=== PATIENT | female | born 1960 | race Asian ===

== ENCOUNTER 2020-10-04 15:54 | Inpatient (IN) | payer MEDICAID, SELFPAY ==
[~2020-10-04] VITALS: Ht 160 cm; Wt 92.7 kg
--- NOTE | 2020-10-04 15:54 | NUR ---
BROUGHT IN BY [facility] PLACED IN BED #7 AND TRIAGED. REPORT GIVEN TO COLBY
[2020-10-04 15:55] VITALS: BP_SYST 113
[2020-10-04] MEDS ORDERED: IPRATROPIUM BROM 0.5 MG/2.5 ML VIAL.NEB (ATROVENT) INH ONE ×2 (16:09→16:15)
[2020-10-04] MEDS ORDERED: LevALBUTEROL HCL 1.25 MG/0.5 ML *CONC.* VIAL.NEB (XOPENEX CONC.) INH ONE ×2 (16:09→16:15)
[2020-10-04] MEDS ORDERED: methylPREDNISolone SOD SUCC/PF 62.5 MG/ML VIAL ONE (16:14)
[2020-10-04] MEDS ORDERED: methylPREDNISolone SOD SUCC/PF 62.5 MG/ML VIAL IVP ONE (16:15)
[2020-10-04] MEDS ORDERED: NACL 0.9% 1,000 ML IV ONE (16:15)
--- NOTE | 2020-10-04 16:22 | NUR ---
PT BIB [facility] FOR SOB SINCE YESTERDAY EVENING. EMPLOYMENT PROGRAM REPRESENTATIVE STATED WHEN THEY ARRIVED SHE COULD ONLY SAY 3 WORD SENTENCES AND HAD A SPO2 OF 75%. UPON o2 ADMINISTRATION O2 SAT WAS STILL LOW AND THEY STARTED A BREATHING TREATMENT WHICH MADE HER FEEL BETTER AND HAVE AN SPO2 OF AROUND 90%. PT IS WEAK AND TIRED NOW AND IS NOT COMPLAINING OF ANY PAIN.
--- NOTE | 2020-10-04 16:26 | NUR ---
PT PUT ON BIPAP BY RT DUE TO AN ELEVEATED C02 LEVEL.
--- NOTE | 2020-10-04 16:33 | NUR ---
RADIOLOGY AT BEDSIDE
[2020-10-04 16:52] LABS: CALCIUM 8.5 mg/dL (8.4-11.0); CREATININE 0.85 mg/dL (0.55-1.30); POTASSIUM 3.3 mmol/L (3.5-5.1)
[2020-10-04 17:02] LABS: INR 1.2 (0.8-1.2); PROTHROMBIN TIME 12.4 SECS (9.5-12.5)
[2020-10-04 17:04] LABS: ALBUMIN 2.9 g/dL (3.4-4.8); TOTAL BILIRUBIN 1.3 mg/dL (0.0-1.0)
[2020-10-04 17:19] LABS: BASOPHILS # (AUTO) 0.1 K/uL (0.0-0.2); BASOPHILS % (AUTO) 0.8 % (0.0-2.0); EOSINOPHILS % (AUTO) 0.6 % (0.0-4.0); HEMATOCRIT 44.5 % (36-48); LYMPHOCYTES # (AUTO) 1.4 K/uL (1.0-5.5); LYMPHOCYTES % (AUTO) 16.6 % (20.5-51.5); MEAN CORPUSCULAR HEMOGLOBIN 20 pg (27-31); MEAN CORPUSCULAR VOLUME 74 fL (79.0-98.0); MONOCYTES # (AUTO) 0.8 K/uL (0.0-1.0); MONOCYTES % (AUTO) 9.2 % (1.7-9.3); NEUTROPHILS % (AUTO) 72.8 % (40.0-70.0); PLATELET COUNT (AUTO) 374 K/uL (130-430); RED BLOOD CELL COUNT(AUTO) 6.02 MIL/uL (4.2-6.2); RED CELL DISTRIBUTION WIDTH 23.4 % (9.0-15.0); WHITE BLOOD COUNT (AUTO) 8.3 K/uL (4.8-10.8)
[2020-10-04 17:49] LABS: HEMOGLOBIN 12.1 g/dL (12.0-16.0); MEAN CORPUSCULAR HGB CONC 27 % (32-36)
--- NOTE | 2020-10-04 17:49 | NUR ---
BERENICE SON. PT CONSENTED TO GIVING IMFORMATION TO HIM IF NEEDED.
[2020-10-04] MEDS ORDERED: TRAM50TA PO (17:57)
[2020-10-04] MEDS ORDERED: ALPR1TAB2 PO (17:57)
[2020-10-04] MEDS ORDERED: LEVO25TA7 PO (17:57)
[2020-10-04] MEDS ORDERED: ALBU2.5V7 INH (17:57)
--- NOTE | 2020-10-04 17:57 | NUR ---
PT IS FULL CODE
--- NOTE | 2020-10-04 17:58 | NUR ---
PTs MED REC COMPLETE
[2020-10-04] MEDS ORDERED: FUROSEMIDE 40 MG/4 ML VIAL IVP ONE ×2 (18:00→19:30)
--- NOTE | 2020-10-04 18:15 | NUR ---
# 15 FR Jo catheter with use of sterile technique. Immediate return of 20 cc DARK YELLOW urine noted. Bedside drainage bag placed below level of bladder. Urine sample collected and sent to lab. Pt tolerated procedure WELL.
[2020-10-04 18:38] LABS: BILIRUBIN,URINE 2+ (NEGATIVE); BLOOD, URINE NEGATIVE (NEGATIVE); GLUCOSE,URINE NEGATIVE (NEGATIVE); KETONES,URINE NEGATIVE (NEGATIVE); LEUKOCYTE ESTERASE ,URINE NEGATIVE (NEGATIVE); NITRITE, URINE POSITIVE (NEGATIVE); PROTEIN URINE 3+ (NEGATIVE)
[2020-10-04 18:40] LABS: COLOR,URINE AMBER (YELLOW)
[2020-10-04 18:41] LABS: CLARITY/URINE HAZY (CLEAR)
[2020-10-04 18:57] LABS: RBC,URINE 0-3 /HPF (0-3)
--- NOTE | 2020-10-04 18:57 | NUR ---
Patient will be admitted to care of DR. ARGUETA. Admitted to TELEMETRY unit. Will go to room 116A. Belongings list completed. Complete and up to date summary report printed. SBAR report to be given at bedside with opportunity for questions.
[2020-10-04 18:58] LABS: BACTERIA,URINE MANY /HPF (None Seen); WBC,URINE 0-3 /HPF (0-3)
[2020-10-04 18:59] LABS: COARSE GRANULAR CASTS,URINE 0-10 /LPF (None Seen); FINE GRANULAR CASTS,URINE 0-10 /LPF (None Seen); HYALINE CASTS, URINE 30-50 /LPF (None Seen); MUCUS,URINE 1+ /LPF (None Seen)
[2020-10-04] MEDS ORDERED: ALBUTEROL SULFATE 0.083% 2.5 MG/3 ML VIAL.NEB INH PRN (19:00)
[2020-10-04] MEDS ORDERED: ONDANSETRON HCL 4 MG/2 ML VIAL IVP PRN (19:00)
[2020-10-04] MEDS ORDERED: MAGNESIUM SULFATE 50 ML IV PRN (19:00)
[2020-10-04] MEDS ORDERED: MORPHINE 2 MG/ML INJ. SYRINGE IVP PRN ×2 (19:00)
[2020-10-04] MEDS ORDERED: LORazepam 2 MG/ML VIAL IVP PRN (19:00)
[2020-10-04] MEDS ORDERED: MUPIROCIN 2% TOPICAL OINTMENT 22 GM NS PRN (19:00)
[2020-10-04] MEDS ORDERED: ENOXAPARIN SODIUM 40 MG/0.4 ML SYRINGE SUBCUT ONE (19:30)
[2020-10-04] MEDS ORDERED: PIPERACILLIN/TAZOBACTAM 3.375 GM/VIAL (ZOSYN) IV ONE ×2 (19:51→22:48)
--- NOTE | 2020-10-04 20:10 | NUR ---
PT HAS BEEN UPGRADED TO ICU
[2020-10-04] MEDS: PIPERACILLIN/TAZO 3.375 GM in NS 50 ML IV SCH (20:20)
--- NOTE | 2020-10-04 20:28 | NUR ---
# 22 gauge angiocath placed to R FOREARM. Use of asceptic technique. Opsite placed over site. Blood return noted. Blood for lab drawn from site. Flushed with 10 cc of normal saline. No evidence of infiltration noted. Patient tolerated well.
--- NOTE | 2020-10-04 21:41 | NUR ---
Transfer to ICU via ACLS protocol. Licensed nurse present. IV present no signs or symptoms of infiltration.
[2020-10-04 21:50] VITALS: BP_SYST 109
--- NOTE | 2020-10-04 21:50 | NUR ---
paged Dr. Merrill paged and notified of patient's current respiratory status and ABG's. No new orders and dr stated he will see her in the morning.
--- NOTE | 2020-10-04 21:50 | NUR ---
ADMIT patient came from ER to ICU BED 3. Patient is on the bipap. Does not complain of any pain. Saturations are between 85-90's.
[2020-10-04 22:00] VITALS: BP_SYST 118
--- NOTE | 2020-10-04 22:25 | NUR ---
PAGED FOR ORDERS DIALED: [phone] SPOKE TO: AUTOMATED EXCHANGE
--- NOTE | 2020-10-04 22:28 | NUR ---
PAGED FOR CONSULT NITESH MERRITT ORDERING PHYSICIAN: DR. ARGUETA REASON FOR CONSULT: CHF EXAC DIALED: [phone] SPOKE TO: DEB
[2020-10-04 22:30] VITALS: BP_SYST 107
[2020-10-04 23:00] VITALS: BP_SYST 125
[2020-10-05] VITALS (22 sets, daily range): BP systolic 95–135
[2020-10-05] MEDS: PIPERACILLIN/TAZO 3.375 GM in NS 50 ML IV SCH ×4 (00:29→18:00)
[2020-10-05] MEDS: IPRATROPIUM/ALBUTEROL SULFATE 3 ML AMPUL.NEB (DUONEB) INH PRN (02:40)
--- NOTE | 2020-10-05 02:41 | NUR ---
INCREASED FIO2 TO 75% AT THIS TIME SAT ONLY 79 TO 86% ON 50% RN AWARE WILL TITRATE SAT INCREASES SAT 90% ON 75%FIO2
[2020-10-05] MEDS: LEVOTHYROXINE SODIUM 0.025 MG TABLET PO SCH (06:31)
--- NOTE | 2020-10-05 06:38 | NUR ---
Nutrition Update Kentrell Scale 15 noted. Pt admitted for CHF exacerbation Diet: Cardiac BMI: 42.5 kg/m2 RD to follow per nutrition care standards.
--- NOTE | 2020-10-05 06:48 | NUR ---
Opening Note Received report from AM nurse using SBAR approach.
--- NOTE | 2020-10-05 07:15 | NUR ---
Opening Note Received bedside report from endorsing RN for continuation of care. Received patient on BIPAP resting in bed, no signs or symptoms of acute distress noted. Bed locked in lowest position, bed alarm on, and call light within reach. Fall and safety precautions in place. All needs met.
--- NOTE | 2020-10-05 07:23 | NUR ---
Dr. Lyons at bedside examining patient, new orders received.
[2020-10-05 07:27] LABS: CALCIUM 8.3 mg/dL (8.4-11.0); CREATININE 0.9 mg/dL (0.55-1.30); POTASSIUM 3.4 mmol/L (3.5-5.1)
--- NOTE | 2020-10-05 08:38 | NUR ---
2D ECHO 2D ECHO being done at bedside by operator technician.
[2020-10-05] MEDS: ENOXAPARIN SODIUM 40 MG/0.4 ML SYRINGE SUBCUT SCH (08:40)
[2020-10-05] MEDS ORDERED: FUROSEMIDE 40 MG/4 ML VIAL IVP SCH (09:00)
[2020-10-05] MEDS ORDERED: methylPREDNISolone SOD SUCC/PF 62.5 MG/ML VIAL IVP ONE (09:15)
[2020-10-05 10:08] LABS: BASOPHILS % (AUTO) 0.4 % (0.0-2.0); HEMATOCRIT 43.6 % (36-48); HEMOGLOBIN 11.7 g/dL (12.0-16.0); LYMPHOCYTES # (AUTO) 0.5 K/uL (1.0-5.5); LYMPHOCYTES % (AUTO) 7.3 % (20.5-51.5); MEAN CORPUSCULAR HEMOGLOBIN 20 pg (27-31); MEAN CORPUSCULAR HGB CONC 27 % (32-36); MEAN CORPUSCULAR VOLUME 74 fL (79.0-98.0); MONOCYTES # (AUTO) 0.1 K/uL (0.0-1.0); MONOCYTES % (AUTO) 0.8 % (1.7-9.3); NEUTROPHILS # (AUTO) 6.5 K/uL (1.8-7.7); NEUTROPHILS % (AUTO) 91.5 % (40.0-70.0); PLATELET COUNT (AUTO) 332 K/uL (130-430); RED BLOOD CELL COUNT(AUTO) 5.88 MIL/uL (4.2-6.2); WHITE BLOOD COUNT (AUTO) 7.1 K/uL (4.8-10.8)
[2020-10-05 10:22] LABS: RED CELL DISTRIBUTION WIDTH 23.4 % (9.0-15.0)
--- NOTE | 2020-10-05 10:41 | NUR ---
Dietitian Recommendations *Recommend: [facility] Cardiac diet, Glucerna BID. (ONS will provide 440 kcal, 20gm protein daily). *Offer diet education on next RD visit. *Consider nutrition support if poor PO intake and poor tolerance on PO diet while on BiPAP persists for more than 7 days. Please see Nutritional Assessment for details. ALF, RD
--- NOTE | 2020-10-05 11:25 | NUR ---
RT NOTES Placed pt on HFNC 20L 98% for meal. No adverse reactions noted. Will monitor pt.
--- NOTE | 2020-10-05 15:44 | NUR ---
Dr. Merrill at bedside examining patient, new orders received.
[2020-10-05] MEDS: methylPREDNISolone SOD SUCC/PF 62.5 MG/ML VIAL IVP SCH (17:59)
--- NOTE | 2020-10-05 19:04 | NUR ---
Closing Note Endorsed bedside report to oncoming RN using SBAR approach for continuation of care.
--- NOTE | 2020-10-05 19:30 | NUR ---
Opening Note Received report from AM nurse using SBAR approach.
--- NOTE | 2020-10-05 21:00 | NUR ---
Gave patient a bed bath as requested.
[2020-10-05] MEDS: FUROSEMIDE 40 MG/4 ML VIAL IVP SCH (21:16)
[2020-10-06] VITALS (24 sets, daily range): BP systolic 89–145
--- NOTE | 2020-10-06 | NUR ---
patient took out her IV. Replaced IV on right forearm 22 iv gauge. No signs or symptoms of infiltration noted.
[2020-10-06] MEDS: PIPERACILLIN/TAZO 3.375 GM in NS 50 ML IV SCH ×4 (00:49→18:43)
--- NOTE | 2020-10-06 02:00 | NUR ---
IV PLACEMENT: # 20 gauge angiocath placed to RFA. Use of aseptic technique. Opsite placed over site. Blood return noted. Flushed with 10 cc of normal saline. No evidence of infiltration noted. Patient tolerated well.
[2020-10-06] MEDS: methylPREDNISolone SOD SUCC/PF 62.5 MG/ML VIAL IVP SCH ×3 (03:42→17:09)
--- NOTE | 2020-10-06 04:05 | NUR ---
IV PLACEMENT: # 18 gauge angiocath placed to RFA. Use of aseptic technique. Opsite placed over site. Blood return noted. Flushed with 10 cc of normal saline. No evidence of infiltration noted. Patient tolerated well.
[2020-10-06] MEDS: LEVOTHYROXINE SODIUM 0.025 MG TABLET PO SCH (06:34)
[2020-10-06 06:37] LABS: BASOPHILS % (AUTO) 0.1 % (0.0-2.0); HEMOGLOBIN 11.3 g/dL (12.0-16.0); LYMPHOCYTES # (AUTO) 0.4 K/uL (1.0-5.5); LYMPHOCYTES % (AUTO) 5.3 % (20.5-51.5); MEAN CORPUSCULAR HEMOGLOBIN 20 pg (27-31); MEAN CORPUSCULAR HGB CONC 28 % (32-36); MEAN CORPUSCULAR VOLUME 72 fL (79.0-98.0); MONOCYTES # (AUTO) 0.2 K/uL (0.0-1.0); MONOCYTES % (AUTO) 2.2 % (1.7-9.3); NEUTROPHILS # (AUTO) 7.7 K/uL (1.8-7.7); NEUTROPHILS % (AUTO) 92.4 % (40.0-70.0); PLATELET COUNT (AUTO) 331 K/uL (130-430); WHITE BLOOD COUNT (AUTO) 8.4 K/uL (4.8-10.8)
[2020-10-06 07:01] LABS: ALANINE AMINOTRANSFERASE 7 U/L (12-78); ALBUMIN 2.6 g/dL (3.4-4.8); ASPARTATE AMINOTRANSFERASE 9 U/L (10-37); CALCIUM 8.4 mg/dL (8.4-11.0); CREATININE 0.93 mg/dL (0.55-1.30); GLUCOSE 140 mg/dL (70-99); POTASSIUM 3.3 mmol/L (3.5-5.1); THYROID STIMULATING HORMONE 1.37 uIu/mL (0.36-3.74); TOTAL BILIRUBIN 0.7 mg/dL (0.0-1.0); UREA NITROGEN, BLOOD 27 mg/dL (8-21)
[2020-10-06 07:33] LABS: ANION GAP 4 (5-15); CHLORIDE 99 mmol/L (98-107); SODIUM SERUM 148 mmol/L (136-145)
[2020-10-06 07:48] LABS: GFR AFRICAN AMERICAN 79 mL/min (>90)
[2020-10-06 08:13] LABS: CHOLESTEROL 127 mg/dL (<200); HDL CHOLESTEROL 42 mg/dL (>55); LDL CHOLESTEROL 73 mg/dL (<100); TRIGLYCERIDES 98 mg/dL (30-150)
--- NOTE | 2020-10-06 08:15 | NUR ---
AM ASSESSMENT. PT ALERT, R.T AT BEDSIDE, O2 CHANGED TO OXYMIZER AT 10 L, TEMP TAKEN AND IN NORMAL RANGE. DISCUSSED IV INSERTION AND ANTIBIOTICS TREATMENT TO PT, SHE STATED THAT THE MEDICINE WAS HURTING HER ARM WHEN HER NURSE GAVE HER DOSE THIS MORNING, SO SHE ASKED HER TO STOP IT. WILL TRY TO REINSERT ANOTHER IV IN A DIFFERENT AREA.
[2020-10-06] MEDS: ENOXAPARIN SODIUM 40 MG/0.4 ML SYRINGE SUBCUT SCH (09:59)
[2020-10-06] MEDS: POTASSIUM CHLORIDE 20 MEQ TAB.PRT.SR PO PRN (09:59)
--- NOTE | 2020-10-06 10:00 | NUR ---
IV INSERTION. 20 GAUGE CATHETER INSERTED INTO LEFT HAND, WITH GOOD BLOOD RETURN NOTED, SECURED WITH TAPE.
[2020-10-06] MEDS: FUROSEMIDE 40 MG/4 ML VIAL IVP SCH ×2 (10:30→20:04)
--- NOTE | 2020-10-06 16:30 | NUR ---
REST. PT SLEEPING DURING ROUNDS.
--- NOTE | 2020-10-06 19:30 | NUR ---
OPENING NOTE Received SBA Report from off coming RN for continuity of care. Pt laying in bed and on 10 L oximizer, oxygen saturations above 90%. Jo catheter in place and draining to gravity. Bed locked and in lowest position, safety precautions in place.
--- NOTE | 2020-10-06 20:00 | NUR ---
Pt awake and confused. Pt yelling help. Redirected pt and provided comfort measures, pt not redirectable. Pt attempts to remove equipment. Pt alert to self, pt states she is at "Elaina's house not in the hospital". Will continue to reorient pt and administer PRN for agitation.
[2020-10-06] MEDS: DOCUSATE SODIUM 100 MG CAPSULE PO PRN (20:04)
[2020-10-06] MEDS: ZOLPIDEM TARTRATE 5 MG TABLET PO PRN (20:05)
[2020-10-06] MEDS: ACETAMINOPHEN 325 MG TABLET PO PRN (20:05)
[2020-10-07] VITALS (25 sets, daily range): BP systolic 118–156
[2020-10-07] MEDS: methylPREDNISolone SOD SUCC/PF 62.5 MG/ML VIAL IVP SCH ×3 (01:00→20:42)
[2020-10-07] MEDS: PIPERACILLIN/TAZO 3.375 GM in NS 50 ML IV SCH ×4 (01:20→19:08)
[2020-10-07] MEDS: ZOLPIDEM TARTRATE 5 MG TABLET PO PRN ×2 (02:45→20:42)
[2020-10-07] MEDS: ACETAMINOPHEN 325 MG TABLET PO PRN (02:45)
[2020-10-07] MEDS: DOCUSATE SODIUM 100 MG CAPSULE PO PRN ×3 (02:45→20:42)
--- NOTE | 2020-10-07 03:30 | NUR ---
Pt alert to self and place at times but pt more redirectable. Pt is cooperative now.
[2020-10-07 06:47] LABS: BASOPHILS % (AUTO) 0.1 % (0.0-2.0); HEMOGLOBIN 11.9 g/dL (12.0-16.0); LYMPHOCYTES # (AUTO) 0.3 K/uL (1.0-5.5); LYMPHOCYTES % (AUTO) 3.6 % (20.5-51.5); MEAN CORPUSCULAR HEMOGLOBIN 20 pg (27-31); MEAN CORPUSCULAR HGB CONC 28 % (32-36); MEAN CORPUSCULAR VOLUME 71 fL (79.0-98.0); MONOCYTES # (AUTO) 0.3 K/uL (0.0-1.0); MONOCYTES % (AUTO) 2.9 % (1.7-9.3); NEUTROPHILS # (AUTO) 8.9 K/uL (1.8-7.7); NEUTROPHILS % (AUTO) 93.4 % (40.0-70.0); PLATELET COUNT (AUTO) 360 K/uL (130-430); RED BLOOD CELL COUNT(AUTO) 5.95 MIL/uL (4.2-6.2); RED CELL DISTRIBUTION WIDTH 23.1 % (9.0-15.0); WHITE BLOOD COUNT (AUTO) 9.6 K/uL (4.8-10.8)
[2020-10-07 06:49] LABS: CALCIUM 8.9 mg/dL (8.4-11.0); CHLORIDE 94 mmol/L (98-107); CREATININE 0.95 mg/dL (0.55-1.30); GLUCOSE 134 mg/dL (70-99); POTASSIUM 3.3 mmol/L (3.5-5.1); SODIUM SERUM 144 mmol/L (136-145); UREA NITROGEN, BLOOD 29 mg/dL (8-21)
[2020-10-07] MEDS: LEVOTHYROXINE SODIUM 0.025 MG TABLET PO SCH (06:55)
--- NOTE | 2020-10-07 07:30 | NUR ---
CLOSING NOTE Endorsed SBAR report to oncoming RN for continuity of care.
[2020-10-07 08:34] LABS: GFR AFRICAN AMERICAN 77 mL/min (>90)
[2020-10-07 08:35] LABS: ANION GAP < 3 (5-15)
[2020-10-07] MEDS ORDERED: FUROSEMIDE 40 MG/4 ML VIAL IVP SCH (09:00)
[2020-10-07] MEDS: POTASSIUM CHLORIDE 20 MEQ TAB.PRT.SR PO PRN (09:22)
[2020-10-07] MEDS: ENOXAPARIN SODIUM 40 MG/0.4 ML SYRINGE SUBCUT SCH (09:27)
--- NOTE | 2020-10-07 14:13 | NUR ---
0730: Received patient this AM awake, alert, and oriented x4. Denies Pain. Afebrile with other VS within normal limits. Presently on oxymizer @ 5l. Stated that she did not sleep well last night. Requested another sleeping pill. Stated that the sleeping pill she was given did not work for her because she did not sleep. Stated again that she was not in pain. Informed patient that we don't give sleeping pills during the day time. 0800: Ate 100% of her breakfast and tolerated it well. 0835: At the bedside in ICU 8 and was given Chemistry result of Patient's CO2 of 63 from the Charge . 0900: Potassium 3.3. Administered Potassium 40meq as a standing order replacement. 0839:Dr. Merrill the Pigment Presser was informed. Administered Diamox 500mg IVP as ordered. 0945: Beater Boss was informed of Venous CO2 of 63. Dr. Rondon was informed of Venous CO2 result of 63. 1117: Back from break was asked of Patient's neuro status. Patient was noted to be slightly lethargic. Not easy to arouse. 1120: Patient was immediately placed on Bipap 15/5, BUR 25, Fio2 75%. 1135: Fio2 titrated down to 65% by the RT.
--- NOTE | 2020-10-07 16:31 | NUR ---
Nutrition F/U RD reviewed pt's current EMR record including diet Hx, physician notes, nursing notes, pertinent labs/meds/procedures, care trends, and care activity. Admission Dx: CHF exacerbation Pt w/: Acute on chronic systolic over diastolic heart failure, CAP, Acute Hypercapnic respiratory failure, Moderate to severe malnutrition, obesity,Tobacco dependence, UTI per MD notes. PMH: COPD, CHF per MD notes SARS-CoV-2 Ag Rapid 10/04 Negative Current Diet Order/Nutrition Support: Cardiac, CCHO standard carb-60 gm diet w/ Glucerna BID x2 days Subjective Info: RD rounded to pt's room, however pt was busy w/ RT. RN reported that pt ate 100% of breakfast, but pt became lethargic and required BiPAP before lunch, and did not eat lunch for this reason. Per EMR review, pt is on 5 L O2 via BiPAP; PO intake average of 75% X4 meals; abd is soft and non-distended w/ active bowel sounds; no BM noted yet. Current diet is appropriate for now. Pertinent Medications: solu-medrol, lasix, lovenox, synthroid, piperacillin/tazobactam IV, k-dur, colace Pertinent Labs: K 3.3 L, BG 134 H, BUN 29 HL, CRE 0.95 WNL Ht: 5'3"/63" Wt: 240#/109 kg (10/05) -- *wt appears stable Body Mass Index: 42.51 kg/m2 (obesity class III) %IBW: 209 [place]/Adjusted Body Weight: 115#/52kg; Adj IBW obesity: 146#/66kg Skin Integrity Comment: Kentrell scale: 15. No skin issues/edema documented. Estimated Energy Expenditure (kcals/day) 2435-3848 Kcal/day (25-30 kcal/kg IBW for Morbid obesity) Estimated Protein Required (g/day) 52-78 gm/day (1-1.5 gm/kg IBW for Morbid obesity) Estimated Fluid Required (l/day) per MD (CHF) Problem/Etiology/Signs/Symptoms Malnutrition r/t morbid obesity AEB BMI >40kg/m2. *ongoing Altered nutrition related labs r/t medication interaction AEB elevated BG, steroid therapy. *ongoing Expected Outcomes/Goals Monitor appetite and PO intake w/ goal of pt meeting more than 75% of estimated nutritional needs, labs trending WNL, normal GI function, skin integrity/wt maintenance. Dietitian Recommendations * Continue cardiac, CCHO diet w/ Glucerna BID. (ONS will provide 440 kcal/day, 20 gm protein/day) Follow Up High Risk: F/U in 2-3 days
--- NOTE | 2020-10-07 16:42 | NUR ---
Dietitian Recommendations * Continue cardiac, CCHO diet w/ Glucerna BID. (ONS will provide 440 kcal/day, 20 gm protein/day) LP, RD Please refer to Nutrition F/U for details.
--- NOTE | 2020-10-07 19:30 | NUR ---
OPENING NOTE: Received SBAR report from off coming RN for continuity of care. Pt laying in bed, awake and alert on Bipap. Oxygen saturations maintained above 90%. No s/s of distress noted. Jo catheter in place and draining to gravity. Call light within reach. Bed locked and in lowest position. Safety precautions in place.
--- NOTE | 2020-10-07 19:54 | NUR ---
1600: Remains on Bipap. Note dto be awake, alert, and oriented x4. No respiratory distress or any other discomfort noted. Denies pain. Speech clear and coherent. paper novelty maker and RT aware. 1900: Status remains as stated above the rest of the shift. All stated protocols remain effective.
--- NOTE | 2020-10-07 20:15 | NUR ---
Pt laying in bed, stating she's hungry. Placed pt on oximizer so she could eat her dinner. Pt eating her dinner, tolerating well. Pt denies any nausea at the moment or any discomfort. Pt states she has not had a BM in a week. Will administer PRN Colace for her. Pt stated she would like her sleeping aid, will administer once she is ready for bed. Pt is a/o x 3 and makes needs known. Oj catheter in place and draining to gravity, yellow urine output noted. Assisted pt with repositioning. Call light within reach.Bed locked and in lowest position, safety precautions in place.
[2020-10-08] VITALS (21 sets, daily range): BP systolic 113–148
[2020-10-08] MEDS: PIPERACILLIN/TAZO 3.375 GM in NS 50 ML IV SCH ×4 (01:36→18:26)
--- NOTE | 2020-10-08 06:00 | NUR ---
Pt tolerated Bipap throughout the night and slept well. Pt switched to 6 L oximizer and tolerating well. Pt denies any pain or discomfort. Provided juice and crackers for snacking. Call light within reach, bed locked and in lowest position.
[2020-10-08] MEDS: LEVOTHYROXINE SODIUM 0.025 MG TABLET PO SCH (06:18)
[2020-10-08 06:29] LABS: MEAN CORPUSCULAR HEMOGLOBIN 20 pg (27-31); MEAN CORPUSCULAR HGB CONC 28 % (32-36)
[2020-10-08 07:01] LABS: CALCIUM 8.9 mg/dL (8.4-11.0); CREATININE 0.91 mg/dL (0.55-1.30); POTASSIUM 3.2 mmol/L (3.5-5.1)
--- NOTE | 2020-10-08 07:29 | NUR ---
CLOSING NOTE Endorsed SBAR report to off coming RN for continuity of care.
[2020-10-08] MEDS ORDERED: methylPREDNISolone SOD SUCC 40 MG/ML VIAL IVP ONE (08:45)
[2020-10-08 08:46] LABS: RED BLOOD CELL COUNT(AUTO) 6.13 MIL/uL (4.2-6.2); WHITE BLOOD COUNT (AUTO) 9.9 K/uL (4.8-10.8)
[2020-10-08 08:47] LABS: HEMATOCRIT 44.7 % (36-48); HEMOGLOBIN 12.3 g/dL (12.0-16.0); LYMPHOCYTES # (AUTO) 0.4 K/uL (1.0-5.5); LYMPHOCYTES % (AUTO) 4.1 % (20.5-51.5); MEAN CORPUSCULAR VOLUME 73 fL (79.0-98.0); MONOCYTES # (AUTO) 0.2 K/uL (0.0-1.0); MONOCYTES % (AUTO) 2.3 % (1.7-9.3); NEUTROPHILS # (AUTO) 9.3 K/uL (1.8-7.7); NEUTROPHILS % (AUTO) 93.6 % (40.0-70.0); PLATELET COUNT (AUTO) 369 K/uL (130-430); RED CELL DISTRIBUTION WIDTH 23.2 % (9.0-15.0)
[2020-10-08] MEDS ORDERED: SENNA 8.8 MG/5 ML UDC GT PRN ×2 (09:00→10:45)
[2020-10-08] MEDS ORDERED: methylPREDNISolone SOD SUCC 40 MG/ML VIAL IVP SCH (09:00)
[2020-10-08] MEDS: ENOXAPARIN SODIUM 40 MG/0.4 ML SYRINGE SUBCUT SCH (09:09)
[2020-10-08] MEDS: MILK OF MAGNESIA 30 ML UDC PO PRN (09:13)
[2020-10-08] MEDS ORDERED: SENNA 8.8 MG/5 ML UDC GT SCH (11:00)
[2020-10-08] MEDS: SENNA 8.8 MG/5 ML UDC GT SCH ×2 (12:00→22:10)
[2020-10-08] MEDS ORDERED: SENNA 8.8 MG/5 ML UDC GT ONE (13:30)
[2020-10-08] MEDS ORDERED: OMEPRAZOLE Non-Formulary 20 MG CAPSULE.DR PO ONE (18:45)
[2020-10-08] MEDS ORDERED: PANTOPRAZOLE SODIUM 40 MG TAB PO ONE (18:45)
[2020-10-08] MEDS: POTASSIUM CHLORIDE 20 MEQ TAB.PRT.SR PO PRN (19:27)
--- NOTE | 2020-10-08 20:00 | NUR ---
PATIENT WAS ACCEPTED AND ASSEST DONE , PATIENT C/O OF NOT HAVING AN BM FOR 5 DAY HAS BEEN GIVEN MOM ,NO RESPOND PATIENT IS ANXIOUS AND IS AN SMOKER DONT NOT KNOWN SMOKE LAST , MAY GOING TO AN WITH DRAW MAY ALSO NEED MEDICATION , SON HAD CALLED NEED TO SPEAK TO THE PATIENT ON PHONE WAS NOT AWARE THE PHONE ELIECER INSIDE THE ROOM WAS NOT WORKING CAME AN MISUNDERSTAND , WILL TRIED TO FINE THE PORTABLE PHONE WITH PICTURE ONLY WAS FOUND AND PATIENT WAS ABLE TO SPEAK WITH HER SON STABLE
[2020-10-08] MEDS: methylPREDNISolone SOD SUCC 40 MG/ML VIAL IVP SCH (22:10)
--- NOTE | 2020-10-08 23:30 | NUR ---
PATIENT WAS GIVEN AMBIEN 10 MG PO FOE SLEEP AND GIVEN MOM 30 ML AND COLACE 100MG PO TO HELP WITH BM, STABLE, WILL CONTIUED WITH PLAN OF CARE
[2020-10-08] MEDS: ZOLPIDEM TARTRATE 5 MG TABLET PO PRN (23:48)
[2020-10-09] VITALS (23 sets, daily range): BP systolic 104–159
[2020-10-09] MEDS: INSULIN LISPRO SLIDING SCALE 100 UNITS/ML VIAL (humaLOG) SUBCUT PRN ×5 (00:08→21:25)
[2020-10-09] MEDS: PIPERACILLIN/TAZO 3.375 GM in NS 50 ML IV SCH ×4 (00:20→18:21)
[2020-10-09] MEDS: DOCUSATE SODIUM 100 MG CAPSULE PO PRN (01:11)
[2020-10-09] MEDS: MILK OF MAGNESIA 30 ML UDC PO PRN (01:11)
--- NOTE | 2020-10-09 05:30 | NUR ---
PATIENT WAS GIVEN AN BATH ASK FELT ANYTHING, STAT SHE WAS ABLE PASS SOME FLATUS , WILL CONTINUED MONITOR THE PATIENT STABLE
[2020-10-09 06:42] LABS: BASOPHILS % (AUTO) 0.1 % (0.0-2.0); HEMATOCRIT 47.5 % (36-48); HEMOGLOBIN 13.6 g/dL (12.0-16.0); LYMPHOCYTES # (AUTO) 0.4 K/uL (1.0-5.5); LYMPHOCYTES % (AUTO) 4.3 % (20.5-51.5); MEAN CORPUSCULAR HEMOGLOBIN 20 pg (27-31); MEAN CORPUSCULAR HGB CONC 29 % (32-36); MEAN CORPUSCULAR VOLUME 71 fL (79.0-98.0); MONOCYTES # (AUTO) 0.2 K/uL (0.0-1.0); MONOCYTES % (AUTO) 1.8 % (1.7-9.3); NEUTROPHILS % (AUTO) 93.8 % (40.0-70.0); PLATELET COUNT (AUTO) 322 K/uL (130-430); RED BLOOD CELL COUNT(AUTO) 6.69 MIL/uL (4.2-6.2); RED CELL DISTRIBUTION WIDTH 23.1 % (9.0-15.0); WHITE BLOOD COUNT (AUTO) 8.5 K/uL (4.8-10.8)
[2020-10-09 06:56] LABS: CALCIUM 8.8 mg/dL (8.4-11.0); CREATININE 0.84 mg/dL (0.55-1.30)
[2020-10-09] MEDS: LEVOTHYROXINE SODIUM 0.025 MG TABLET PO SCH (08:19)
[2020-10-09] MEDS ORDERED: OMEPRAZOLE Non-Formulary 20 MG CAPSULE.DR PO SCH (09:00)
[2020-10-09] MEDS: PANTOPRAZOLE SODIUM 40 MG TAB PO SCH (09:15)
[2020-10-09] MEDS: methylPREDNISolone SOD SUCC 40 MG/ML VIAL IVP SCH ×2 (09:15→21:22)
[2020-10-09] MEDS: ENOXAPARIN SODIUM 40 MG/0.4 ML SYRINGE SUBCUT SCH (09:16)
[2020-10-09] MEDS: SENNA 8.8 MG/5 ML UDC GT SCH ×2 (09:17→21:00)
[2020-10-09] MEDS: ACETAMINOPHEN 325 MG TABLET PO PRN ×2 (11:13→19:53)
--- NOTE | 2020-10-09 19:27 | NUR ---
PT HAS BEEN STABLE THE WHOLE SHIFT, GIVEN TYLENOL FOR HEAD ACHE, PT HAD 1 BM. BLOOD SUGAR CHECKED AND GIVEN COVERAGE. ENDORSED TO NIGHT KATELYN BECKETT.
--- NOTE | 2020-10-09 20:00 | NUR ---
Patient awake alert HOB elevated verbally indicative OXIMIZER @ 6 LPM 02 SAT 96 % chest movement is symmetrical also unlabored call schwartz given to patient .
[2020-10-09] MEDS: ZOLPIDEM TARTRATE 5 MG TABLET PO PRN (21:23)
--- NOTE | 2020-10-09 23:09 | NUR ---
TYLENOL 325 MG PO administer for acute pain & helpful .
--- NOTE | 2020-10-09 23:10 | NUR ---
AMBIEN 10 MG PO administer for sleep aide per patient Request / monitor .
[2020-10-10] VITALS (16 sets, daily range): BP systolic 110–136
[2020-10-10] MEDS: PIPERACILLIN/TAZO 3.375 GM in NS 50 ML IV SCH ×4 (00:01→17:47)
--- NOTE | 2020-10-10 02:59 | NUR ---
Large stool noted assist / for position change kept clean & dry as needed SAFETY MEASURES implemented / .
--- NOTE | 2020-10-10 03:11 | NUR ---
Patient awake alert verbally indicative 02 SAT 97 % on OXIMIZER @ 6 LPM skin dry also warm .
--- NOTE | 2020-10-10 05:27 | NUR ---
Patient awake this hour verbally indicative HOB is elevated Respirations remain Regular also unlabored .
[2020-10-10] MEDS: LEVOTHYROXINE SODIUM 0.025 MG TABLET PO SCH (06:16)
[2020-10-10 06:18] LABS: CALCIUM 8.8 mg/dL (8.4-11.0); CREATININE 0.92 mg/dL (0.55-1.30); POTASSIUM 4.5 mmol/L (3.5-5.1)
[2020-10-10] MEDS: INSULIN LISPRO SLIDING SCALE 100 UNITS/ML VIAL (humaLOG) SUBCUT PRN ×3 (06:18→17:56)
[2020-10-10 06:31] LABS: HEMATOCRIT 47.7 % (36-48); HEMOGLOBIN 13.6 g/dL (12.0-16.0); LYMPHOCYTES # (AUTO) 0.3 K/uL (1.0-5.5); LYMPHOCYTES % (AUTO) 3.5 % (20.5-51.5); MEAN CORPUSCULAR HEMOGLOBIN 20 pg (27-31); MEAN CORPUSCULAR HGB CONC 29 % (32-36); MEAN CORPUSCULAR VOLUME 71 fL (79.0-98.0); MONOCYTES # (AUTO) 0.1 K/uL (0.0-1.0); MONOCYTES % (AUTO) 1.5 % (1.7-9.3); NEUTROPHILS # (AUTO) 7.7 K/uL (1.8-7.7); PLATELET COUNT (AUTO) 340 K/uL (130-430); WHITE BLOOD COUNT (AUTO) 8.1 K/uL (4.8-10.8)
--- NOTE | 2020-10-10 07:15 | NUR ---
Opening/MD Rounds Received report from endorsing RN. Pt AAOx4, states no pain or distress at this time, on 6L O2 via oximizer. Jo in place draining yellow urine. Dr. Edouard already rounded this morning. Bed in locked and call light in reach. No other complaints at this time.
[2020-10-10 08:08] LABS: TOTAL IRON BIND. CAPACITY 389 ug/dL (250-450)
[2020-10-10] MEDS: ENOXAPARIN SODIUM 40 MG/0.4 ML SYRINGE SUBCUT SCH (08:24)
[2020-10-10] MEDS: SENNA 8.8 MG/5 ML UDC GT SCH ×3 (08:27→21:45)
[2020-10-10] MEDS: methylPREDNISolone SOD SUCC 40 MG/ML VIAL IVP SCH ×2 (08:27→21:46)
[2020-10-10] MEDS: PANTOPRAZOLE SODIUM 40 MG TAB PO SCH (08:27)
[2020-10-10] MEDS: FUROSEMIDE 40 MG/4 ML VIAL IVP SCH (08:28)
[2020-10-10] MEDS: DOCUSATE SODIUM 100 MG CAPSULE PO PRN (08:49)
--- NOTE | 2020-10-10 08:55 | NUR ---
Pt states no pain or distress at this time. O2 changed to 3LPM via oximizer. Call out to patient's son per pt request, no answer, left voicemail.
--- NOTE | 2020-10-10 10:00 | NUR ---
Received call from pt's son Glynn, update given. States he has no transportation to see pt but is able to have video call. Pt currently sleeping, arousable.
--- NOTE | 2020-10-10 11:29 | NUR ---
Nutrition F/U RD reviewed pt's current EMR record including diet Hx, physician notes, nursing notes, pertinent labs/meds/procedures, care trends, and care activity. Admission Dx: CHF exacerbation Pt w/: Acute on chronic systolic over diastolic heart failure, CAP, Acute Hypercapnic respiratory failure, Moderate to severe malnutrition, obesity,Tobacco dependence, UTI per MD notes. PMH: COPD, CHF per MD notes SARS-CoV-2 Ag Rapid 10/04 Negative, PCR 10/08 Negative Current Diet Order/Nutrition Support: Cardiac, CCHO standard carb-60 gm diet w/ Glucerna BID x5 days Subjective Info: RD visit at bedside today. Pt in good spirits and able to hold conversation. 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 Pt denied any N/V/D/C. RD offered diet education during visit, pt was passive and accepting of the handouts but did not want RD to review diet order w/ her. Pt also states that she wants to rest/sleep. Per MD notes, pt w/ COPD and CHF w/ extensive smoking history and on 2L oxygen at home. O2 requirements has gradually decreased from that on admission, now on 6L oxymizer. CXR on 10/08 showed increased left base infiltrate and effusion. Pt remains in ICU. Per EMR, abdomen is soft and nondistended w/ active bowel sounds, last BM 10/10 x2. Kentrell scale: 16. No skin issues/edema documented. PO intake records incomplete. Current diet remains adequate and appropriate. Pertinent Medications: solu-medrol, lasix, lovenox, synthroid, piperacillin/tazobactam IV, k-dur, colace Pertinent Labs: 10/10 Na 141WNL, K 4.5WNL, BG 166H, POC BG 180H, BUN 31H, Cre 0.92WNL, 10/04 HgbA1c 5.9H Ht: 5'3"/63" Wt: 240#/109 kg (10/05). New weight: 204#/92.6 kg (10/10) -36# weight loss, possibly d/t fluid loss and poor PO intake during first few days of admission. Body Mass Index: 42.51 kg/m2 (obesity class III). New BMI: 36.2 kg/m2 (10/10) %IBW: 209 [place]/Adjusted Body Weight: 115#/52kg; New Adj MIAH: 137#/ 62.3kg. (Modified) Estimated Energy Expenditure (kcals/day) 4783-2762 Kcal/day (25-30 kcal/kg IBW for Obesity) (Modified) Estimated Protein Required (g/day) 52-78 gm/day (1-1.5 gm/kg IBW for Obesity) Estimated Fluid Required (l/day) per MD (CHF) Problem/Etiology/Signs/Symptoms Malnutrition r/t morbid obesity AEB BMI >40kg/m2. *no longer applicable, BMI lower than 40kg/m2 as of 10/10. Altered nutrition related labs r/t medication interaction AEB elevated BG, steroid therapy. *ongoing Poor nutrition quality of life r/t behavioral factors AEB pt follows unrestricted diet at home, and eats whatever she likes. (*new) Expected Outcomes/Goals Monitor appetite and PO intake w/ goal of pt meeting more than 75% of estimated nutritional needs, labs trending WNL, normal GI function, skin integrity/wt maintenance. Dietitian Recommendations * Continue cardiac, CCHO diet w/ Glucerna BID. (ONS will provide 440 kcal/day, 20 gm protein/day) * Diet education --needs reinforcement by f/u. Follow Up High Risk: F/U in 2-3 days
--- NOTE | 2020-10-10 11:41 | NUR ---
Dietitian Recommendations * Continue cardiac, CCHO diet w/ Glucerna BID. (ONS will provide 440 kcal/day, 20 gm protein/day) * Diet education --needs reinforcement by f/u. Please see Nutrition F/U note for details. JUSTINA, RD
--- NOTE | 2020-10-10 12:30 | NUR ---
Telemetry Status Pt now being monitored as telemetry status. Waiting for available bed.
--- NOTE | 2020-10-10 16:00 | NUR ---
Physical therapist with patient.
[2020-10-10] MEDS: IPRATROPIUM/ALBUTEROL SULFATE 3 ML AMPUL.NEB (DUONEB) INH PRN (16:08)
--- NOTE | 2020-10-10 17:00 | NUR ---
Pt states no pain or distress at this time on 2L O2 via oximizer. Pt also on video call with son Glynn. Pt and son updated with plan of care. Still waiting for bed.
--- NOTE | 2020-10-10 19:02 | NUR ---
Closing Pt states no pain or distress, on 2L O2 via oximizer. IV site intact, patent. Jo in place draining urine to gravity. No other complaints at this time. Informed pt about waiting for bed, states understanding. Will endorse plan of care to oncoming RN.
--- NOTE | 2020-10-10 19:36 | NUR ---
Report given to endorsing RN. Pt will transfer to 118A telemetry.
--- NOTE | 2020-10-10 19:45 | NUR ---
TRANSFER PT TRANSFERRED VIA BED TO TELE 118A. NURSE RHODA STEPHENS.
--- NOTE | 2020-10-10 19:55 | NUR ---
CHANGE OF SHIFT; pt. transferred from ICU, report given by Tereza. pt. awake alert. oriented to room, use of call light and bed control. IV tko on left hand. placed on cardiac cath technologist and shows sinus rhythm. engel cath to osd. O2 @ 2 liters per oximizer, HOB elevated. informed pt. to use call light for help and verbalized understanding. call light within reach.
--- NOTE | 2020-10-10 21:45 | NUR ---
NOTES: pt. medicated as scheduled. pt. repositioned with help, turn to sides. BS checked 146, no coverage. Addendum: 10/11/20 at 0349 by Ann Benson RN Late entry 2030 10/10/20 RT asked pt. to be place on BIPAP but refused.
[2020-10-10] MEDS: ACETAMINOPHEN 325 MG TABLET PO PRN (21:47)
[2020-10-10] MEDS: ZOLPIDEM TARTRATE 5 MG TABLET PO PRN (21:47)
[2020-10-11] VITALS (7 sets, daily range): BP systolic 121–142
[2020-10-11] MEDS: PIPERACILLIN/TAZO 3.375 GM in NS 50 ML IV SCH ×3 (00:07→13:14)
--- NOTE | 2020-10-11 00:17 | NUR ---
NOTES: pt. pretty awake, needs attended. IV antibiotic infused.
--- NOTE | 2020-10-11 02:05 | NUR ---
NOTES: pt. checked and sleeping.
--- NOTE | 2020-10-11 04:30 | NUR ---
NOTES: pt. remain asleep. condition observed. no distress.
[2020-10-11 06:12] LABS: BASOPHILS % (AUTO) 0.1 % (0.0-2.0); HEMATOCRIT 46.4 % (36-48); HEMOGLOBIN 13.2 g/dL (12.0-16.0); LYMPHOCYTES # (AUTO) 0.4 K/uL (1.0-5.5); LYMPHOCYTES % (AUTO) 3.6 % (20.5-51.5); MEAN CORPUSCULAR HEMOGLOBIN 20 pg (27-31); MEAN CORPUSCULAR HGB CONC 29 % (32-36); MEAN CORPUSCULAR VOLUME 71 fL (79.0-98.0); MONOCYTES # (AUTO) 0.2 K/uL (0.0-1.0); MONOCYTES % (AUTO) 2.2 % (1.7-9.3); NEUTROPHILS # (AUTO) 9.3 K/uL (1.8-7.7); NEUTROPHILS % (AUTO) 94.1 % (40.0-70.0); PLATELET COUNT (AUTO) 331 K/uL (130-430); RED BLOOD CELL COUNT(AUTO) 6.49 MIL/uL (4.2-6.2); RED CELL DISTRIBUTION WIDTH 22.4 % (9.0-15.0); WHITE BLOOD COUNT (AUTO) 9.9 K/uL (4.8-10.8)
[2020-10-11] MEDS: LEVOTHYROXINE SODIUM 0.025 MG TABLET PO SCH (06:13)
[2020-10-11 06:23] LABS: CALCIUM 8.9 mg/dL (8.4-11.0); CREATININE 0.91 mg/dL (0.55-1.30); POTASSIUM 4.3 mmol/L (3.5-5.1)
[2020-10-11] MEDS: INSULIN LISPRO SLIDING SCALE 100 UNITS/ML VIAL (humaLOG) SUBCUT PRN ×4 (06:27→21:54)
--- NOTE | 2020-10-11 06:47 | NUR ---
CLOSING NOTES; pt. awakened , BS checked 204. IV antibiotic infused. for further care and assistance. IV site patent, engel cath intact. call light within reach. will endorse to incoming shift.
--- NOTE | 2020-10-11 07:30 | NUR ---
OPENING NOTES: RECEIVED REPORT FROM CORSAGE MAKER NURSE. PATIENT IS AWAKE LAYING DOWN IN BED. TOLERATED OXYGEN ON 2L OXIMIZER WITH NO DISTRESS NOTED. IV LINE PATENT AND INTACT WITH NO INFILTRATION NOTED. DIA CATHETER IN PLACE AND INTACT DRAINING BY GRAVITY. PATIENT STABLE AT THIS TIME. SAFETY, FALL, AND ASPIRATION PRECAUTIONS ARE IN PLACE. BED LOCKED IN LOWEST POSITION AND CALL LIGHT IN REACH. WILL CONTINUE TO MONITOR PATIENT FOR ANY CHANGES.
[2020-10-11] MEDS ORDERED: AMOX-423 PO (08:41)
[2020-10-11] MEDS ORDERED: IRON DEXTRAN COMPLEX 25 MG in NS 50 ML TEST DOSE IV ONE (09:00)
--- NOTE | 2020-10-11 09:00 | NUR ---
PATIENT WAS PUT ON A 2L NASAL CANNULA ACCORDING TO RT. PATIENT TOLERATED IT WELL.
[2020-10-11] MEDS: ENOXAPARIN SODIUM 40 MG/0.4 ML SYRINGE SUBCUT SCH (10:07)
[2020-10-11] MEDS: FUROSEMIDE 40 MG/4 ML VIAL IVP SCH (10:09)
[2020-10-11] MEDS: PANTOPRAZOLE SODIUM 40 MG TAB PO SCH (10:09)
[2020-10-11] MEDS: ASCORBIC ACID 500 MG TABLET PO SCH (10:09)
[2020-10-11] MEDS: SENNA 8.8 MG/5 ML UDC GT SCH ×2 (10:09→21:00)
[2020-10-11] MEDS: methylPREDNISolone SOD SUCC 40 MG/ML VIAL IVP SCH ×2 (10:09→21:41)
[2020-10-11] MEDS ORDERED: IRON DEXTRAN COMPLEX 75 MG in NS 100 ML IV SCH (11:00)
[2020-10-11] MEDS ORDERED: IRON DEXTRAN COMPLEX 75 MG in NS 100 ML IV ONE (11:00)
[2020-10-11] MEDS: ACETAMINOPHEN 325 MG TABLET PO PRN (11:50)
--- NOTE | 2020-10-11 11:59 | NUR ---
Dr Javan Edouard, will see pt
--- NOTE | 2020-10-11 15:01 | NUR ---
CM note: discussed dc plan to home with home health when cleared by senior php web developer. The pt agreed with the dc but does not want home health nurse visiting. Confirmed she has home O2 equipment ready at home.
--- NOTE | 2020-10-11 16:07 | NUR ---
TRIED TO BOOK A FOLLOW UP APPOINTMENT WITH HER PRIMARY MD DR DEL RIO ([facility]) BUT WHEN WE CALLED A FEW MINUTES BEFORE 1600, NO ONE ANSWERED THE PHONE . WE WILL WORK ON THE APPOINTMENT TOMORROW AM AND NOTIFY THE PT AT HOME.
--- NOTE | 2020-10-11 16:08 | NUR ---
CHF FOLLOW-UP: PATIENT REFUSED FOR STAFF TO MAKE AN APPOINTMENT FOR HER TO HER DOCTOR DUE TO LACK OF TRANSPORTATION. INSTRUCTED PATIENT TO CALL AND SEE PRIMARY CARE DOCTOR 7 DAYS AFTER DISCHARGE. PATIENT VERBALIZED UNDERSTANDING.
--- NOTE | 2020-10-11 18:16 | NUR ---
Vanessa Cox was paged directly. re: clearance for discharge to home.
--- NOTE | 2020-10-11 18:30 | NUR ---
SPOKE TO DR. MTZ GAVE CLEARANCE TO DISCHARGE THE PATIENT HOME.
--- NOTE | 2020-10-11 18:34 | NUR ---
CLOSING NOTES: PATIENT IS AWAKE LAYING DOWN IN BED. TOLERATED OXYGEN ON 2L OXIMIZER WITH NO DISTRESS NOTED. IV LINE PATENT AND INTACT WITH NO INFILTRATION NOTED. DIA CATHETER IN PLACE AND INTACT DRAINING BY GRAVITY. PATIENT STABLE AT THIS TIME. SAFETY, FALL, AND ASPIRATION PRECAUTIONS REMAINED IN PLACE. BED LOCKED IN LOWEST POSITION AND CALL LIGHT IN REACH. WILL ENDORSE PATIENT CARE TO ONCOMING AIRLINE CUSTOMER SERVICE AGENT NURSE.
--- NOTE | 2020-10-11 19:25 | NUR ---
CHANGE OF SHIFT; 'endorsed by day shift, pt. with discharge order, discharge instructions and paper given by nurse Mahajan. pt. waiting for her son to pick her up. pt. took off desk monitor and O2. denies any discomfort.
--- NOTE | 2020-10-11 20:00 | NUR ---
NOTES: pt. son here, verbalizing his mom is not her normal condition, noted focusing but able to answer questions appropriately, pt. felt anxious and said she is happy to go home, apparently pt. use O@ at home but son did not have the portable O@ saying its out of O2. checked O2 sat 88% on room air. will call Dr. Rondon.
--- NOTE | 2020-10-11 20:05 | NUR ---
NOTES: called Dr. Rondon and informed him about pt. status ( low O2 sat) and pt. son verbalizing not comfortable taking her hoe, hold discharge and ordered stat Ct scan of head without contrast'
--- NOTE | 2020-10-11 20:11 | NUR ---
NOTES: 'called back Dr. Rondon and told him about the seizures and calling Rapid Response. more orders given.
--- NOTE | 2020-10-11 20:30 | NUR ---
NOTES: Rapid response ended @ 2021. EKG/AbG stat done neuro consult with Dr. Phillips and EEG KAUSHIK. pt. waking up and able to response verbally. padded rails on. Vs rechecked. O2 titrated down to 3 liters per oximizer, O2 sat 93-94%.
--- NOTE | 2020-10-11 20:47 | NUR ---
NOTES: Called Dr. Edouard, Dr. Brown retention manager and informed him ABG result, no further order. kept @ 3 liters with oximizer.
--- NOTE | 2020-10-11 21:10 | NUR ---
NOTES: pt. went to CT scan without contrast and accompanied by nurse Ismael. settled in bed, complete hs care done, pt. was incontinent of urine and was diaphoretic during seizures.
--- NOTE | 2020-10-11 22:00 | NUR ---
NOTES: pt. resting and dozing off when checked. BS 172 with sliding scale coverage and due med given. IV lock on left hand. call light at bedside.
--- NOTE | 2020-10-11 22:09 | NUR ---
NOTES: charge nurse Misbah at bedside, called [facility] since pt. started to have seizures, witnessed. Rapid response team at bedside. O2 up, monitor VS. Addendum: 10/11/20 at 2222 by Ann Benson RN late entry wrong time actual [facility] @ 2008.
[2020-10-12] MEDS: ACETAMINOPHEN 325 MG TABLET PO PRN (00:24)
--- NOTE | 2020-10-12 00:24 | NUR ---
NOTES: pt. called and c/o headache, [id number] mg po given as ordered. repositioned self.
--- NOTE | 2020-10-12 00:35 | NUR ---
NOTES: cardiac monitor called that pt. HR went up, went and checke dpt. and had another seizures, remain at bedside, VS checked 184/94 HR 96, asked tech to call neuro consult with Dr. Phillips.
[2020-10-12 00:39] VITALS: BP_SYST 138
--- NOTE | 2020-10-12 00:50 | NUR ---
NOTES: rechecked VS BP 157/[address] Phillips called and informed him about he pt. had already [address] scan result, will see the pt. this am with orders for EEG and IV Keppra and Ativan prn for seizures.
[2020-10-12] MEDS: levETIRAcetam 500 MG in NS 100 ML IV SCH ×3 (01:21→20:17)
--- NOTE | 2020-10-12 01:46 | NUR ---
Ofelia SHELL CALLED US BACK AND HE IS AWARE OF CONSULTATION HE SPOKE WITH RHODA ZEPEDA
--- NOTE | 2020-10-12 02:00 | NUR ---
NOTES: pt. nauseated and vomited undigested food. O@ sat @ 88%, up O2 @ 5 liters for ow, and will titrate.
--- NOTE | 2020-10-12 02:15 | NUR ---
NOTES; pt. asleep at his time, on seizure precautions, padded side rails
[2020-10-12] MEDS: LORazepam 2 MG/ML VIAL IVP PRN ×2 (04:53→11:11)
--- NOTE | 2020-10-12 04:53 | NUR ---
NOTES: Ativan 1 mg IV given by nurse Ismael, had another episode of seizures.
--- NOTE | 2020-10-12 05:30 | NUR ---
NOTES: pt. checked, asleep, condition guarded.
[2020-10-12 06:29] LABS: BASOPHILS % (AUTO) 0.1 % (0.0-2.0); HEMATOCRIT 48.8 % (36-48); HEMOGLOBIN 13.7 g/dL (12.0-16.0); LYMPHOCYTES # (AUTO) 0.2 K/uL (1.0-5.5); LYMPHOCYTES % (AUTO) 1.6 % (20.5-51.5); MEAN CORPUSCULAR HEMOGLOBIN 20 pg (27-31); MEAN CORPUSCULAR HGB CONC 28 % (32-36); MEAN CORPUSCULAR VOLUME 72 fL (79.0-98.0); MONOCYTES # (AUTO) 0.3 K/uL (0.0-1.0); MONOCYTES % (AUTO) 2.1 % (1.7-9.3); NEUTROPHILS # (AUTO) 12.8 K/uL (1.8-7.7); NEUTROPHILS % (AUTO) 96.2 % (40.0-70.0); PLATELET COUNT (AUTO) 304 K/uL (130-430); RED BLOOD CELL COUNT(AUTO) 6.82 MIL/uL (4.2-6.2); RED CELL DISTRIBUTION WIDTH 22.9 % (9.0-15.0)
[2020-10-12 06:33] LABS: CALCIUM 9.3 mg/dL (8.4-11.0); CREATININE 0.78 mg/dL (0.55-1.30); POTASSIUM 3.8 mmol/L (3.5-5.1)
--- NOTE | 2020-10-12 06:37 | NUR ---
CLOSING NOTES; pt. still pretty sedated from IV antibiotic. will check BS. no further seizure activity, keep padded rails. O2 @ liters per oximizer, O2 sat 95%. IV lock patent, TKO running. call light at bedside.will endorse to incoming shift. Dr. Phillips to see pt. this morning.
--- NOTE | 2020-10-12 07:26 | NUR ---
OPENING NOTE Patient sleeping in the bed. No acute distress. Skin warm and dry to touch. SL intact to RAC, no redness, no swelling, patent. Safety measure maintained. Call light within [id number]. Bed locked in low position, padded side rails up, bed alarm on. Will continue to monitor.
[2020-10-12] MEDS: LEVOTHYROXINE SODIUM 0.025 MG TABLET PO SCH (07:30)
--- NOTE | 2020-10-12 07:30 | NUR ---
SEEN AND EXAMINED BY DR. ARGUETA [facility] Reported to Dr. Argueta, patient very drowsy and Synthroid not given. Dr. Argueta stated "that is fine if patient drowsy and I will put the swallow eval".
--- NOTE | 2020-10-12 07:52 | NUR ---
SWALLOW/ORAL EVAL NAOMI SPEECH PROFESSIONAL LEFT MSG ON ANSWERING MACHINE
[2020-10-12 07:55] VITALS: BP_SYST 117
--- NOTE | 2020-10-12 08:16 | NUR ---
SEEN AND EXAMINED BY NITESH DANIEL.
[2020-10-12 08:18] LABS: WHITE BLOOD COUNT (AUTO) 13.3 K/uL (4.8-10.8)
[2020-10-12] MEDS: SENNA 8.8 MG/5 ML UDC GT SCH ×2 (09:00→21:00)
[2020-10-12] MEDS: PANTOPRAZOLE SODIUM 40 MG TAB PO SCH (09:00)
[2020-10-12] MEDS: ASCORBIC ACID 500 MG TABLET PO SCH (09:00)
[2020-10-12] MEDS: methylPREDNISolone SOD SUCC 40 MG/ML VIAL IVP SCH ×2 (09:43→20:17)
[2020-10-12] MEDS: FUROSEMIDE 40 MG/4 ML VIAL IVP SCH (09:44)
[2020-10-12] MEDS: ENOXAPARIN SODIUM 40 MG/0.4 ML SYRINGE SUBCUT SCH (09:45)
--- NOTE | 2020-10-12 09:45 | NUR ---
PATIENT STILL DROWSY, AM PO MED NOT GIVEN, IV MED GIVEN ORDERED.
[2020-10-12] MEDS: IRON DEXTRAN COMPLEX 100 MG in NS 100 ML IV SCH (09:49)
--- NOTE | 2020-10-12 11:13 | NUR ---
SEIZURE Reported by vivit Beltran, patient had seizure started on the left side, fingers twisting, arm stiff, left facial drip for 2 min. Ativan 1mg IVP given as ordered. Patient did not remember what was happened. vivit continue to apply lead to patient. Safety measure maintained. Call light within reached. Bed locked in low position, padded side rails pain, bed alarm on. Continue to monitor.
--- NOTE | 2020-10-12 11:54 | NUR ---
UNABLE TO CONDUCT PT TODAY DUE TO PATIENT HAVING MULTIPLE SEIZURES.
[2020-10-12 12:00] VITALS: BP_SYST 104
--- NOTE | 2020-10-12 12:22 | NUR ---
EGG DONE AT BEDSIDE.
--- NOTE | 2020-10-12 12:32 | NUR ---
BS 158 Patient sleeping and not eating at this time. Insulin not given. Safety measure maintained. Call light within reached. Bed locked in low position, padded side raisl up, bed alarm on. Continue to monitor.
--- NOTE | 2020-10-12 13:40 | NUR ---
S.T. SWALLOW EVAL SWALLOW EVAL COMPLETED. PT PRESENTS W/ SEV PRE-ORAL AND ORAL DYSPHAGIA W/ MOD PHARYNGEAL DYSPHAGIA CHARACTERIZED BY DECREASED ALERTNESS AND AWARENESS FOR P.O. CLIPPER COUNTERS, SIGNIFICANTLY DELAYED BOLUS MANIPULATION, AND DELAYED SWALLOW. NO S/S OF ASPIRATION, BUT PT AT HIGH RISK FOR ASPIRATION, MALNUTRITION, AND DEHYDRATION. REC: NPO - ALTERNATIVE METHOD FOR FEEDING. NURSE NAINA NOTIFIED.
--- NOTE | 2020-10-12 13:45 | NUR ---
CALLED AMARILIS HARRISON REGARDING THE SWALLOW EVAL RESULT, LEFT MESSAGE AND WAITED TO CALL BACK.
--- NOTE | 2020-10-12 13:57 | NUR ---
[facility] Received the call back from Dr. Argueta francheska. Reported to Dr. Argueta, patient was alert, awoke asked ice chip. Patient was able to take it without any problem or s/s aspiration. However, seizure happened when EGG tech apply leads to patient. Per tech, seizure last 2 min start on left side. BS 158, insulin not given because patient not eating. Swallow eval done by ST and failed. Dr. Argueta ordered D5 NS at 50ml/hr. Order read back and okay to Dr. Argueta. Will call Dr. Phillips to notify the seizure activity.
[2020-10-12] MEDS ORDERED: D5NS 1,000 ML IV SCH (14:00)
--- NOTE | 2020-10-12 14:10 | NUR ---
[place], [facility] [place], WILL CALL AGAIN.
--- NOTE | 2020-10-12 15:04 | NUR ---
ROUND Patient sleeping in the bed with snoring. No acute distress. Continue on O2 3L/min via oxyimzer. IV intact, IVF infusing well. Safety measure maintained. Call light within reached. Bed locked in low position, padded side rails up, bed alarm on. Continue to monitor.
--- NOTE | 2020-10-12 15:25 | NUR ---
SECOND CALL TO DR. ESPINO'S OFFICE, STILL NO ANSWER AT THIS TIME. WILL CALL LATER.
[2020-10-12 16:00] VITALS: BP_SYST 116
--- NOTE | 2020-10-12 16:38 | NUR ---
CALLED DR. ESPINO'S CELLPHONE, WILL COME TO SEE THE PATIENT AFTER 5PM PER DR. ESPINO.
[2020-10-12] MEDS: INSULIN LISPRO SLIDING SCALE 100 UNITS/ML VIAL (humaLOG) SUBCUT PRN (17:55)
--- NOTE | 2020-10-12 17:56 | NUR ---
BS 162 Insulin not given because patient on NPO status. Giorgio Hanley in the unit make aware and agreed
--- NOTE | 2020-10-12 18:42 | NUR ---
CLOSING NOTE Patient sleeping in the bed. No acute distress. Skin warm and dry to touch. IV intact to RAC, no redness, no swelling, no drainage. n D5 1/2NS at 50ml/hr, infusing well. Seizure activity noted x 1 during shift. Ativan 1mg IVP given as ordered. No further seizure episode noted after Ativan administration. Safety measure maintained. Call light within reached. Bed locked in low position, padded side rails up, bed alarm on. Will endorse to night nurse.
[2020-10-12 20:00] VITALS: BP_SYST 125
--- NOTE | 2020-10-12 22:16 | NUR ---
DR. MTZ AT BEDSIDE
--- NOTE | 2020-10-12 23:02 | NUR ---
PATIENT IS AWAKE, ALERT AND ORIENTED AND STATES SHE IS VERY HUNGRY AND IS REQUESTING TO EAT. SPOKE WITH DR. ARGUETA AND HE GAVE ORDERS TO DO A BEDSIDE SWALLOW EVAL AND IF PATIENT PASSES OKAY TO GIVE PATIENT FOOD.
--- NOTE | 2020-10-12 23:34 | NUR ---
PERFORMED BEDSIDE SWALLOW EVALUATION ORDERED BY DR. ARGUETA GATHERED SUPPLIES: CUP WITH WATER, SPOON, STRAW, AND TOWEL AFTER SITTING PATIENT IN SEMI-FOWLERS POSITION, I GAVE PATIENT SIPS OF WATER WITH A SPOON. SHE WAS ABLE TO SWALLOW WITH NO DIFFICULTY, SHE DID NOT HAVE ANY S/S OF DROOLING, GAGGING, COUGHING OR WATER COMING OUT OF MOUTH. PROCEEDED TO STEP 2 AND GAVE PATIENT A SIP OF WATER OUT OF CUP. AFTER CAREFUL OBSERVATION, THE PATIENT PASSED THE TEST. SHE WAS ABLE TO SWALLOW WITH NO DIFFICULTY, SHE DID NOT HAVE ANY S/S OF DROOLING, GAGGING, COUGHING OR WATER COMING OUT OF MOUTH. PROCEEDED TO STEP 3 OF SWALLOW EVALUATION AND GAVE PATIENT A FILLED CUP OF WATER AND WHILE USING A STRAW, CAREFULLY OBSERVED THE PATIENT DRINK THE WATER. SHE DID NOT HAVE ANY DIFFICULTY SWALLOWING THE WATER AND DID NOT EXHIBIT ANY S/S OF DROOLING, GAGGING, COUGHING OR WATER COMING OUT OF MOUTH. FINALLY, GAVE THE PATIENT AN APPLE SAUCE CUP AND OBSERVED HER EAT IT. SHE TOLERATED THE APPLE SAUCE WELL AND DID NOT HAVE ANY S/S OF GAGGING, COUGHING, OR CHOKING. PATIENT CONTINUES ON SEMI FOWLERS POSITION AND IS CURRENTLY ON THE PHONE TALKING WITH HER SON. SHE IS NOT HAVING ANY S/S OF DISTRESS OR DISCOMFORT. WILL CONTINUE TO MONITOR PATIENT.
[2020-10-13 00:53] VITALS: BP_SYST 116
[2020-10-13 06:24] LABS: CALCIUM 8.9 mg/dL (8.4-11.0); CREATININE 0.7 mg/dL (0.55-1.30); POTASSIUM 3.9 mmol/L (3.5-5.1)
[2020-10-13 06:42] LABS: BASOPHILS # (AUTO) 0.1 K/uL (0.0-0.2); BASOPHILS % (AUTO) 0.7 % (0.0-2.0); HEMATOCRIT 46.1 % (36-48); HEMOGLOBIN 13.3 g/dL (12.0-16.0); LYMPHOCYTES # (AUTO) 0.4 K/uL (1.0-5.5); LYMPHOCYTES % (AUTO) 4.1 % (20.5-51.5); MEAN CORPUSCULAR HEMOGLOBIN 21 pg (27-31); MEAN CORPUSCULAR HGB CONC 29 % (32-36); MEAN CORPUSCULAR VOLUME 71 fL (79.0-98.0); MONOCYTES # (AUTO) 0.3 K/uL (0.0-1.0); MONOCYTES % (AUTO) 3.7 % (1.7-9.3); NEUTROPHILS # (AUTO) 8.2 K/uL (1.8-7.7); NEUTROPHILS % (AUTO) 91.5 % (40.0-70.0); PLATELET COUNT (AUTO) 298 K/uL (130-430); RED BLOOD CELL COUNT(AUTO) 6.49 MIL/uL (4.2-6.2); RED CELL DISTRIBUTION WIDTH 22.9 % (9.0-15.0)
--- NOTE | 2020-10-13 07:44 | NUR ---
CLOSING NOTES: PATIENT IS RESTING IN BED, ALERT AND ORIENTED. SHE IS IN STABLE CONDITION AND DID NOT HAVE ANY SEIZURE ACTIVITY THROUGHOUT MY SHIFT. I HAVE ENDORSED CARE TO DAYSHIFT NURSE.
--- NOTE | 2020-10-13 08:00 | NUR ---
Opening Note Received patient sleeping bed but arousable. Axo3. Reports no pain, bed in lowest position, side rails are padded, call light within reach and bed alarm on. Discussed seizure precautions and to call if she felt a seizure impending. Pt explained that she is able to swallow, did a swallow screen and patient passed. Repeat swallow evaluation ordered.
[2020-10-13] MEDS: SENNA 8.8 MG/5 ML UDC GT SCH ×2 (09:28→20:48)
[2020-10-13] MEDS: ASCORBIC ACID 500 MG TABLET PO SCH (09:28)
[2020-10-13] MEDS: ENOXAPARIN SODIUM 40 MG/0.4 ML SYRINGE SUBCUT SCH (09:28)
[2020-10-13] MEDS: levETIRAcetam 500 MG TABLET PO SCH ×2 (09:29→20:48)
[2020-10-13] MEDS: PANTOPRAZOLE SODIUM 40 MG TAB PO SCH (09:29)
[2020-10-13] MEDS: predniSONE 20 MG TABLET PO SCH ×2 (09:29→20:48)
[2020-10-13] MEDS: IRON DEXTRAN COMPLEX 100 MG in NS 100 ML IV SCH (09:31)
[2020-10-13 10:51] VITALS: BP_SYST 127
[2020-10-13] MEDS ORDERED: LEVE500T53 PO (11:40)
--- NOTE | 2020-10-13 12:33 | NUR ---
Rounding Note Took of Oxymizer to prepare for discharge per MD order, pt is at 86% without oxygen therapy. O2 93 with Oxymizer.
[2020-10-13 12:50] VITALS: BP_SYST 124
--- NOTE | 2020-10-13 14:35 | NUR ---
Nutrition F/U RD and internet marketer visited pt at bedside -- D/C orders in place. Pt reported that she has has not been eating as she does not care for pureed diet. RD offered pureed diet alternative (pudding/yogurt) -- pt was agreeable. FNS staff provided. RD notified pt's primary RN regarding pt's wishes for upgrade in diet texture. ST swallow eval order was placed. RD to continue to follow as per nutrition care standards.
--- NOTE | 2020-10-13 15:59 | NUR ---
Rounding Note Patient report headache for pain, requested pain medication, notified Md Floyd,, new order for Torodol.
[2020-10-13] MEDS ORDERED: KETOROLAC TROMETHAMINE 30 MG VIAL IVP ONE (16:15)
--- NOTE | 2020-10-13 16:24 | NUR ---
Update on D/C Spoke with son at bedside, as per son the portable oxygen is not available to bring in the hospital for discharge, does not know the company where to find the portable oxygen. Spoke to case packer (Bianka) and notified about the situation. As per Bianka states she will call son (Glynn) and discuss arrangement for portable oxygen.
--- NOTE | 2020-10-13 16:34 | NUR ---
Referral for home health sent to [facility]-not contracted, [facility] -not contracted. Referral also sent to [facility] home [facility] -no contract and [facility] home [facility]-no contract. left message for son, Glynn, , requested name of O2 provider and phone # so we can get a portable O2 tank for the patient. He stated to the nurse, she does not have a portable O2 tank at home.
[2020-10-13 16:45] VITALS: BP_SYST 121
--- NOTE | 2020-10-13 17:35 | NUR ---
S.T. SWALLOW EVAL SWALLOW RE-EVAL COMPLETED. PT PRESENTS W/ FUNCTIONAL OROPHARYNGEAL SWALLOW W/ TIMELY BOLUS MANIPULATION AND NO S/S OF ASPIRATION. SIGNIFICANT IMPROVEMENT FROM YESTERDAY. REC: REGULAR TEXTURED DIET. THIN LIQUIDS OK. NURSES CHELITA AND ISRA NOTIFIED.
--- NOTE | 2020-10-13 18:10 | NUR ---
1310 placed pt on 3l nasal cannnula per donna crawford. sat 93%hr 64. donna aware. Addendum: 10/13/20 at 1811 by Kaylynn Ospina RT Amended: Links added.
--- NOTE | 2020-10-13 19:28 | NUR ---
Closing Note PATIENT IS RESTING IN BED, ALERT AND ORIENTED. SHE IS IN STABLE CONDITION AND DID NOT HAVE ANY SEIZURE ACTIVITY THROUGHOUT MY SHIFT. I HAVE ENDORSED CARE TO NIGHTSHIFT NURSE
--- NOTE | 2020-10-13 19:51 | NUR ---
CALLED PT SON BERENICE GENTILE Son called during change of shift - had called back regarding previous conversation that had been cut short. Patient states that they have portable O2 tank but is empty. Per window caser's information, to get a new one they had to call [employer], the original company that had supplied that same O2 tank. At the time of calling, pt said they were closed (closes at 1730), but the hospital is able to call them in order to have the O2 tank transferred to hospital - phone number [phone], fax [phone]. Calling [employer] at this time to organize portable O2 tank delivery for discharge.
--- NOTE | 2020-10-13 19:54 | NUR ---
[facility] CALLED [facility] called in regards to O2 tank delivery. Wood Lather Ubaldo put on line. States "system is slow, will call back later."
[2020-10-13 20:00] VITALS: BP_SYST 103
--- NOTE | 2020-10-13 20:13 | NUR ---
[facility] UBALDO CALLS BACK Ubaldo calls back to inform RN at this time O2 tank may be delivered to facility ETA 2 hours. Also states to let the son who originally called, Glynn Michel, to call tomorrow in the morning to schedule arrangements for picking up the empty O2 tank.
--- NOTE | 2020-10-13 20:30 | NUR ---
SON CALLED REGARDING [facility] [facility] Patient son Glynn Michel called regarding updates with the portable O2 tank delivery to hospital and to let him know to schedule a pickup time with [facility] to pickup empty O2 tank. Patient son verbalizes understanding.
[2020-10-13] MEDS: INSULIN LISPRO SLIDING SCALE 100 UNITS/ML VIAL (humaLOG) SUBCUT PRN (20:59)
--- NOTE | 2020-10-13 22:00 | NUR ---
ROUNDING NOTES Patient resting in bed - no s/s pain or distress noted. Respirations even and unlabored - head of bed elevated NC 3L. IV site patent - no s/s redness, infection, or infiltration. Seizure precautions in place. Skin warm and dry no s/s hypoglycemia. Bed locked and in lowest position. Call light within reach - bed alarm on.
[2020-10-14 00:25] VITALS: BP_SYST 130
[2020-10-14] MEDS: LEVOTHYROXINE SODIUM 0.025 MG TABLET PO SCH (06:07)
[2020-10-14] MEDS: INSULIN LISPRO SLIDING SCALE 100 UNITS/ML VIAL (humaLOG) SUBCUT PRN ×2 (06:10→11:29)
[2020-10-14] MEDS: ASCORBIC ACID 500 MG TABLET PO SCH (08:39)
[2020-10-14] MEDS: PANTOPRAZOLE SODIUM 40 MG TAB PO SCH (08:39)
[2020-10-14] MEDS: DOCUSATE SODIUM 100 MG CAPSULE PO PRN (08:39)
[2020-10-14] MEDS: levETIRAcetam 500 MG TABLET PO SCH (08:39)
[2020-10-14] MEDS: predniSONE 20 MG TABLET PO SCH (08:39)
[2020-10-14] MEDS: SENNA 8.8 MG/5 ML UDC GT SCH (08:43)
[2020-10-14] MEDS: IRON DEXTRAN COMPLEX 100 MG in NS 100 ML IV SCH (08:43)
[2020-10-14] MEDS: ENOXAPARIN SODIUM 40 MG/0.4 ML SYRINGE SUBCUT SCH (08:48)
[2020-10-14 09:33] VITALS: BP_SYST 135
--- NOTE | 2020-10-14 10:10 | NUR ---
DISCHARGE PLANNING Per pt's nurse portable home O2 at bedside. Discussed discharge plan for home health with pt & is agreeable with plan for home health with no preference, no home health in past. States has a fww at home & son can assist her at home. Called & spoke with Bulmaro at [facility], ph [phone], states did not receive fax, the # we faxed to yest was for hospice, re-faxed referral to fax [phone]. Called [facility] & they no longer do home health only hospice and Palliative. Called & spoke with Viviane at [facility] & they declined pt. Faxed referral to: [facility], [facility], [facility], & [facility]. Addendum: 10/14/20 at 1615 by Fabiola Brink RN [facility], [facility], [facility], & [facility] not contracted declined pt. Called [facility] & not contracted with insurance. Called [facility], ph [phone], left ms with exchange, states will call me back if contracted with insurance. Called & spoke with Valorie at [facility], will be able to accept pt will not be able to see pt until Saturday. Updated charge nurse. [facility], ph [phone], accepted pt, will see pt on Saturday.
[2020-10-14 12:13] VITALS: BP_SYST 132
--- NOTE | 2020-10-14 12:21 | NUR ---
PT worked with the patient at the bedside, and walked around the room. does have a front wheel walker at home, now has a portable oxygen ready to take with her. paged attending for discharge to home order.
--- NOTE | 2020-10-14 16:17 | NUR ---
Jane López Dr.ita victor manuel D/C order
[2020-10-14 16:54] VITALS: BP_SYST 140
--- NOTE | 2020-10-14 17:12 | NUR ---
denier control operator for the attending, aware patient be discharged to home this evening, and Home Health will follow up the following day Glynn, her son, called, and will roll picker the patient from [phone]. he needs a lift to come over the hospital for the roll picker. Reminds him of the RX , on the way he has to have it filled for the patient, " yes, I will have it filled and [facility] will deliver it to my home"
--- NOTE | 2020-10-14 18:36 | NUR ---
1819 son Reno called and patient escorted to the lobby, with portable tank of oxygen, and all discharge paper, discharged to home, alert, oriented, in no respiratory distress.
== END 2020-10-14 18:20 | disposition home health service (06) | DRG 133 ==
LOC: SED 15:54 → STU 18:24 → SIC 21:50 → STU 10-10 19:48
PROVIDERS: ADMIT General Practice; ATTEND General Practice
PROC: 5A09357 Assistance with Respiratory Ventilation, Less than 24 Consecutive Hours, Continuous Positive Airway Pressure (ICD-10-PCS; principal; 2020-10-04)
PROC: 5A09357 Assistance with Respiratory Ventilation, Less than 24 Consecutive Hours, Continuous Positive Airway Pressure (ICD-10-PCS; 2020-10-05)
PROC: 5A0935A Assistance with Respiratory Ventilation, Less than 24 Consecutive Hours, High Flow/Velocity Cannula (ICD-10-PCS; 2020-10-05)
PROC: 5A09357 Assistance with Respiratory Ventilation, Less than 24 Consecutive Hours, Continuous Positive Airway Pressure (ICD-10-PCS; 2020-10-07)
PROC: 5A09357 Assistance with Respiratory Ventilation, Less than 24 Consecutive Hours, Continuous Positive Airway Pressure (ICD-10-PCS; 2020-10-08)
DX: J96.21 Acute and chronic respiratory failure with hypoxia (principal); I50.43 Acute on chronic combined systolic (congestive) and diastolic (congestive) heart failure; E43 Unspecified severe protein-calorie malnutrition; J18.9 Pneumonia, unspecified organism; E87.0 Hyperosmolality and hypernatremia; E86.0 Dehydration; E66.01 Morbid (severe) obesity due to excess calories; F17.200 Nicotine dependence, unspecified, uncomplicated; D50.9 Iron deficiency anemia, unspecified; N39.0 Urinary tract infection, site not specified; J44.0 Chronic obstructive pulmonary disease with (acute) lower respiratory infection; J44.1 Chronic obstructive pulmonary disease with (acute) exacerbation; E87.6 Hypokalemia; R73.03 Prediabetes; G40.909 Epilepsy, unspecified, not intractable, without status epilepticus; Z20.822 Contact with and (suspected) exposure to COVID-19; J96.22 Acute and chronic respiratory failure with hypercapnia; E03.9 Hypothyroidism, unspecified; Z85.6 Personal history of leukemia; Z68.36 Body mass index [BMI] 36.0-36.9, adult; Z79.01 Long term (current) use of anticoagulants; Z79.899 Other long term (current) drug therapy
CPT/HCPCS: 36415; 36600; 70450-TC; 71045; 76376; 76604; 80048; 80053; 80061; 81000; 82803-TC; 82962; 83036; 83540; 83550; 83605; 83735; 83880; 84443; 84484; 85025; 85610-TC; 85730-TC; 87040-TC; 87081; 87086; 92610-GN; 93005; 93306; 94640; 94660; 94760; 95816; 96361; 96372; 96374; 96375; 97110-GP; 97112-GP; 97116-GP; 97530-GP; 99285; G0378; J1030; J1120; J1650; J1750; J1885; J1940; J1953; J2060; J2543; J2930; J7512; J7612; U0003